=== PATIENT | female | born 1980 | race Caucasian/White ===

== ENCOUNTER 2016-11-17 05:19 | Emergency (ER) | payer MEDICAID | END 2016-11-17 06:19 | disposition left against medical advice (07) | LOC: EMS 05:20 | DX: O20.9 Hemorrhage in early pregnancy, unspecified (principal); Z3A.12 12 weeks gestation of pregnancy; Z53.21 Procedure and treatment not carried out due to patient leaving prior to being seen by health care provider ==

== ENCOUNTER → 2016-11-27 | Day surgery (SDC) | payer MEDICAID ==
[~2016-11-27] VITALS: Ht 154.9 cm; Wt 60.0 kg
[~2016-11-27] MED LIST: CeFAZolin 2 GM/DEXTROSE 50 ML IV ONE; DEXAMETHASONE SOD PHOS 4 MG/ML VIAL IVP ONE; FentaNYL CITRATE-PF 100 MCG/2 ML VIAL IVP ONE; FentaNYL CITRATE-PF 100 MCG/2 ML VIAL IVP PRN; HYDROmorphone 2 MG/ML SYRINGE IVP PRN; KETOROLAC TROMETHAMINE 60 MG/2 ML VIAL IM ONE; LIDOCAINE HCL/PF 2% 5 ML VIAL INJ ONE; MEPERIDINE-PF 25 MG/ML SYRINGE IVP PRN; METHYLERGONOVINE MALEATE 0.2 MG/ML VIAL ONE; MIDAZOLAM HCL 2 MG/2 ML VIAL IVP ONE; ONDANSETRON HCL 4 MG/2 ML VIAL IVP ONE; OXYTOCIN 10 UNITS/ML VIAL IM ONE; PROPOFOL 1% 20 ML VIAL IVP ONE; RINGERS SOLUTION,LACTATED 1,000 ML IV ONE; RINGERS SOLUTION,LACTATED 500 ML IV ONE
== END | disposition home or self-care (01) ==
LOC: SURGERY 05:34
PROVIDERS: ATTEND Obstetrics & Gynecology Gynecology
DX: O03.4 Incomplete spontaneous abortion without complication (principal); Z3A.01 Less than 8 weeks gestation of pregnancy
CPT/HCPCS: 59812; J0690; J1100; J1885; J2250; J2405; J2704; J3010; J3490; J7120 ×2; 88305; J2210; J2590

== ENCOUNTER 2017-04-07 22:08 | Emergency (ER) | payer MEDICAID ==
[~2017-04-07] VITALS: Ht 154.9 cm; Wt 59.1 kg
[2017-04-07] MEDS ORDERED: ACETAMINOPHEN/CODEINE 300-30 MG TABLET PO ONE (23:15)
[2017-04-07] MEDS ORDERED: BACITRACIN 0.9 GM PACKET OINTMENT TP ONE (23:15)
[2017-04-07] MEDS ORDERED: SILVER SULFADIAZINE 1% 25 GM CREAM TP ONE (23:30)
[2017-04-08 00:12] VITALS: BP 114/71
== END 2017-04-08 00:17 | disposition home or self-care (01) ==
LOC: EMS 22:10
DX: T23.212A Burn of second degree of left thumb (nail), initial encounter (principal); T23.211A Burn of second degree of right thumb (nail), initial encounter; X19.XXXA Contact with other heat and hot substances, initial encounter; Y93.89 Activity, other specified; Y92.89 Other specified places as the place of occurrence of the external cause; Y99.8 Other external cause status
CPT/HCPCS: 16020; 99285; Z7610

== ENCOUNTER 2017-06-07 17:54 | Emergency (ER) | payer MEDICAID ==
[~2017-06-07] VITALS: Ht 154.9 cm; Wt 58.2 kg
[2017-06-07] MEDS ORDERED: DiphenhydrAMINE HCL 25 MG CAPSULE PO ONE (20:15)
[2017-06-07] MEDS ORDERED: ValACYclovir HCL 500 MG TABLET PO ONE (20:15)
[2017-06-07] MEDS ORDERED: HYDROCODONE/ACETAMINOPHEN 5-325 MG TABLET PO ONE (20:15)
[2017-06-07 20:50] VITALS: BP 129/85
== END 2017-06-07 21:37 | disposition home or self-care (01) ==
LOC: EMS 17:57
DX: R21 Rash and other nonspecific skin eruption (principal); B02.9 Zoster without complications; I10 Essential (primary) hypertension
CPT/HCPCS: 99284

== ENCOUNTER 2017-11-06 16:14 | Emergency (ER) | payer MEDICAID ==
[~2017-11-06] VITALS: Ht 160 cm; Wt 67.3 kg
[2017-11-06] MEDS ORDERED: prenatal PO (16:27)
[2017-11-06] MEDS ORDERED: SODIUM CHLORIDE 0.9% 1,000 ML IV ONE (16:30)
[2017-11-06 16:50] LABS: BASOPHILS % (AUTO) 0.6 % (0.0-2.0); EOSINOPHILS % (AUTO) 1.2 % (1.0-6.0); HEMATOCRIT 38.1 % (36-46); LYMPHOCYTES # (AUTO) 2.3 K/uL (1.0-4.8); LYMPHOCYTES % (AUTO) 28.8 % (22.0-44.0); MEAN CORPUSCULAR HEMOGLOBIN 31.3 pg (26.0-34.0); MEAN CORPUSCULAR HGB CONC 34.3 G/dL (31.0-37.0); MEAN CORPUSCULAR VOLUME 91 fL (80-100); MONOCYTES # (AUTO) 0.5 K/uL (0.1-1.0); MONOCYTES % (AUTO) 6.5 % (2.0-9.0); NEUTROPHILS % (AUTO) 62.9 % (40.0-70.0); PLATELET COUNT (AUTO) 142 K/uL (150-450); RED BLOOD CELL COUNT(AUTO) 4.17 MIL/uL (4.00-5.20); RED CELL DISTRIBUTION WIDTH 13.5 % (11.5-14.5)
[2017-11-06 17:15] LABS: ANION GAP 9 mmol/L (8-16); CALCIUM, TOTAL 9.1 mg/dL (8.8-10.5); CARBON DIOXIDE 25 mmol/L (22-29); CHLORIDE 103 mmol/L (98-107); CREATININE 0.45 mg/dL (0.60-1.30); GLOMERULAR FILTR. RATE CALC > 60 mL/min (>60); GLUCOSE,RANDOM 85 mg/dL (70-110); POTASSIUM 3.3 mmol/L (3.5-5.1); SODIUM SERUM 137 mmol/L (136-145); UREA NITROGEN, BLOOD 12 mg/dL (7-18)
[2017-11-06 17:50] LABS: ALANINE AMINOTRANSFERASE 21 U/L (12-78); ALBUMIN 3.6 g/dL (3.4-5.0); ALKALINE PHOSPHATASE 78 U/L (46-116); ASPARTATE AMINOTRANSFERASE 15 U/L (15-37); BILIRUBIN,TOTAL 0.2 mg/dL (0.1-1.0); HCG,QUANTITATIVE 33673 mIU/mL (0-6); TOTAL PROTEIN, SERUM 7.7 g/dL (6.4-8.2)
[2017-11-06 18:40] VITALS: BP 110/66
== END 2017-11-06 19:25 | disposition home or self-care (01) ==
LOC: EMS 16:15
DX: O20.0 Threatened abortion (principal); Z3A.01 Less than 8 weeks gestation of pregnancy
CPT/HCPCS: 76801; 76817; 86850; 86900; 86901; 96360; 99285

== ENCOUNTER 2018-03-04 19:20 | Observation (INO) | payer MEDICAID ==
[~2018-03-04] VITALS: Ht 154.9 cm; Wt 64.0 kg
[~2018-03-04 19:20] MED LIST changes: -CeFAZolin 2 GM/DEXTROSE 50 ML IV ONE; -DEXAMETHASONE SOD PHOS 4 MG/ML VIAL IVP ONE; -FentaNYL CITRATE-PF 100 MCG/2 ML VIAL IVP ONE; -FentaNYL CITRATE-PF 100 MCG/2 ML VIAL IVP PRN; -HYDROmorphone 2 MG/ML SYRINGE IVP PRN; -KETOROLAC TROMETHAMINE 60 MG/2 ML VIAL IM ONE; -LIDOCAINE HCL/PF 2% 5 ML VIAL INJ ONE; -MEPERIDINE-PF 25 MG/ML SYRINGE IVP PRN; -METHYLERGONOVINE MALEATE 0.2 MG/ML VIAL ONE; -MIDAZOLAM HCL 2 MG/2 ML VIAL IVP ONE; -ONDANSETRON HCL 4 MG/2 ML VIAL IVP ONE; -OXYTOCIN 10 UNITS/ML VIAL IM ONE; -PROPOFOL 1% 20 ML VIAL IVP ONE; -RINGERS SOLUTION,LACTATED 1,000 ML IV ONE; -RINGERS SOLUTION,LACTATED 500 ML IV ONE; +prenatal PO
[2018-03-04] MEDS ORDERED: FERR-82 PO (20:26)
[2018-03-04 20:30] VITALS: BP 107/63
[2018-03-04] MEDS ORDERED: RINGERS SOLUTION,LACTATED 1,000 ML IV ONE (21:00)
[2018-03-05] MEDS ORDERED: BETAMETHASONE SOLUSPAN 6 MG/ML 5 ML VIAL IM SCH
[2018-03-05] MEDS ORDERED: NIFEdipine 10 MG CAPSULE PO ONE (00:30)
[2018-03-05] MEDS ORDERED: PREN-134 PO (13:00)
[2018-05-20] MEDS ORDERED: IBUP-2070 PO (10:01)
[2018-05-20] MEDS ORDERED: DSS100 PO (10:02)
== END 2018-03-05 00:45 | disposition home or self-care (01) ==
LOC: 4S 19:20
PROVIDERS: ADMIT Obstetrics & Gynecology; ATTEND Obstetrics & Gynecology
DX: O09.523 Supervision of elderly multigravida, third trimester (principal); Z3A.28 28 weeks gestation of pregnancy
CPT/HCPCS: 59025; 76805; 76817; 96360; 96361 ×2; 96372; G0378 ×2; J0702; J7120

== ENCOUNTER 2018-03-05 12:33 | Observation (INO) | payer MEDICAID ==
[~2018-03-05] VITALS: Ht 154.9 cm; Wt 64.0 kg
[~2018-03-05 12:33] MED LIST changes: +FERR-82 PO
[2018-03-05] MEDS ORDERED: BETAMETHASONE SOLUSPAN 6 MG/ML 5 ML VIAL IM ONE (13:00)
[2018-03-05] MEDS ORDERED: PREN-134 PO (13:00)
== END 2018-03-05 13:55 | disposition home or self-care (01) ==
LOC: 4S 12:33
PROVIDERS: ADMIT Obstetrics & Gynecology; ATTEND Obstetrics & Gynecology
DX: O09.523 Supervision of elderly multigravida, third trimester (principal); Z3A.28 28 weeks gestation of pregnancy
CPT/HCPCS: 59025; 96372; G0378; J0702